=== PATIENT | male | born 1985 | race Caucasian/White ===

== ENCOUNTER 2019-08-19 20:50 | Emergency (ER) | payer OTHER ==
[~2019-08-19] VITALS: Ht 188 cm; Wt 79.4 kg
[2019-08-19 22:55] VITALS: BP 109/73
== END 2019-08-19 22:56 | disposition home or self-care (01) ==
LOC: M.ERS 20:50
DX: S90.31XA Contusion of right foot, initial encounter (principal); Z88.8 Allergy status to other drugs, medicaments and biological substances; W20.8XXA Other cause of strike by thrown, projected or falling object, initial encounter; Y93.89 Activity, other specified; Y92.89 Other specified places as the place of occurrence of the external cause; Y99.8 Other external cause status

== ENCOUNTER 2020-03-28 14:42 | Emergency (ER) | payer OTHER ==
[~2020-03-28] VITALS: Ht 188 cm; Wt 77.1 kg
[2020-03-28] MEDS ORDERED: MEDROLDOSEPACK PO (15:36)
[2020-03-28] MEDS ORDERED: APAP W/CODEINE1 TA2 PO (15:36)
[2020-03-28] MEDS ORDERED: NAPROSYN500 MG PO (15:36)
[2020-03-28 15:43] VITALS: BP 116/78
--- NOTE | 2020-03-29 10:10 | EKG ---
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: : 1985 Requested By: Dwight Cannon Order Number: [id number] MD: Marc Dowd Measurements Intervals [place] Rate: 66 P: 62 NE: 108 QRS: 75 QRSD: 97 T: 60 QT: 365 QTc: 383 Interpretive Statements Sinus rhythm Short NE interval ST elev, probable normal early repol pattern Baseline wander in lead(s) I,III,aVL,aVF,V6 No previous ECG available for comparison Electronically Signed On 03-29-2020 10:09:55 [employer] by Marc Dowd [email or web address] <ELECTRONICALLY SIGNED> By: Marc Dowd MD, [facility] 03/29/20 1009 1447 1447 Marc Dowd MD, [facility] /EPI
== END 2020-03-28 15:44 | disposition home or self-care (01) ==
LOC: M.ERS 14:42
DX: R07.9 Chest pain, unspecified (principal); Z88.8 Allergy status to other drugs, medicaments and biological substances

== ENCOUNTER 2020-05-01 00:16 | Emergency (ER) | payer OTHER ==
[~2020-05-01] VITALS: Ht 182.9 cm; Wt 77.1 kg
[~2020-05-01 00:16] MED LIST: APAP W/CODEINE1 TA2 PO; MEDROLDOSEPACK PO; NAPROSYN500 MG PO
[2020-05-01 00:47] LABS: ABSOLUTE EOSINOPHILS 0.2 thou/uL (0.0-0.7); ABSOLUTE LYMPHOCYTES 2.1 thou/uL (0.8-5.3); ABSOLUTE MONOCYTES 0.5 thou/uL (0.0-1.2); BASOPHILS 0.5 %; HEMATOCRIT 45.7 % (42.0-52.0); HEMOGLOBIN 15.6 gm/dL (14.0-18.0); LYMPHOCYTES 31.1 %; MCH 29.6 pg (26.0-34.0); MCHC 34.2 g/dL (28.0-37.0); MCV 86.4 fL (80.0-100.0); MONOCYTES 7.5 %; MPV 8.5 fl. (7.2-11.1); NUCLEATED RBCS 0 /100WBC; PLATELET COUNT* 71 thou/uL (150-400); POLYS 57.9 %; RBC 5.29 mil/uL (4.50-6.00); RDW-CV 12.6 % (10.5-14.5); WBC 6.9 thou/uL (4.0-11.0)
[2020-05-01 00:58] LABS: CALCIUM 8.5 mg/dL (8.5-10.1); CREATININE 0.9 mg/dL (0.6-1.3)
[2020-05-01 00:59] LABS: ALBUMIN 3.9 g/dL (3.4-5.0); TOTAL BILIRUBIN 0.6 mg/dL (<0.1-1.0); TOTAL PROTEIN 6.9 g/dL (6.4-8.2)
[2020-05-01 01:00] LABS: POTASSIUM 4.1 mmol/L (3.5-5.1)
[2020-05-01 01:51] LABS: AMP/METHAMP Negative (Negative); BARBITURATES Negative (Negative); BENZODIAZEPINES Negative (Negative); COCAINE Negative (Negative); METHADONE Negative (Negative); OPIATES Negative (Negative); PCP Negative (Negative); THC Negative (Negative)
[2020-05-01] MEDS ORDERED: REGLAN 10 MG TA10 MG PO (02:33)
[2020-05-01 02:49] VITALS: BP 118/67
== END 2020-05-01 02:50 | disposition home or self-care (01) ==
LOC: M.ERS 00:16
PROVIDERS: Emergency Medicine
DX: K56.7 Ileus, unspecified (principal); Z88.6 Allergy status to analgesic agent

== ENCOUNTER 2020-05-03 10:25 | Emergency (ER) | payer OTHER ==
[~2020-05-03] VITALS: Ht 182.9 cm; Wt 86.6 kg
[~2020-05-03 10:25] MED LIST changes: +REGLAN 10 MG TA10 MG PO
[2020-05-03 11:00] LABS: ABSOLUTE EOSINOPHILS 0.2 thou/uL (0.0-0.7); ABSOLUTE LYMPHOCYTES 1.8 thou/uL (0.8-5.3); ABSOLUTE MONOCYTES 0.6 thou/uL (0.0-1.2); ABSOLUTE NEUTROPHILS 5.2 thou/uL (1.6-8.1); BASOPHILS 0.4 %; EOSINOPHILS 2.2 %; HEMATOCRIT 45.4 % (42.0-52.0); HEMOGLOBIN 15.5 gm/dL (14.0-18.0); LYMPHOCYTES 22.8 %; MCH 29.1 pg (26.0-34.0); MCHC 34.2 g/dL (28.0-37.0); MCV 85.1 fL (80.0-100.0); MONOCYTES 7.8 %; MPV 7.9 fl. (7.2-11.1); NUCLEATED RBCS 0 /100WBC; POLYS 66.8 %; RBC 5.34 mil/uL (4.50-6.00); RDW-CV 12.7 % (10.5-14.5); WBC 7.8 thou/uL (4.0-11.0)
[2020-05-03 11:01] LABS: PLATELET COUNT* 234 thou/uL (150-400)
[2020-05-03 11:05] LABS: CALCIUM 8.6 mg/dL (8.5-10.1); CREATININE 1.1 mg/dL (0.6-1.3); POTASSIUM 3.5 mmol/L (3.5-5.1)
[2020-05-03 11:09] LABS: ALBUMIN 4.5 g/dL (3.4-5.0); TOTAL BILIRUBIN 0.5 mg/dL (<0.1-1.0); TOTAL PROTEIN 7.8 g/dL (6.4-8.2)
[2020-05-03 11:21] LABS: URINE BILIRUBIN NEGATIVE (Negative); URINE BLOOD NEGATIVE (Negative); URINE CLARITY CLEAR; URINE COLOR YELLOW; URINE GLUCOSE-RANDOM NEGATIVE (Negative); URINE KETONES NEGATIVE (Negative); URINE LEUKOCYTES-REFLEX NEGATIVE (Negative); URINE NITRITE-REFLEX NEGATIVE (Negative); URINE PROTEIN NEGATIVE (Negative); URINE SPECIFIC GRAVITY 1.015 (1.005-1.030); URINE UROBILINOGEN 0.2 E.U./dl (0.2-1.0)
[2020-05-03] MEDS ORDERED: HYDROCODON-ACE1 EAC7 PO (11:58)
[2020-05-03] MEDS ORDERED: BENTYL 10 MG CA10 MG PO (11:58)
[2020-05-03] MEDS ORDERED: ZOFRAN ODT4 MG DISSOLVE (11:58)
[2020-05-03 12:14] VITALS: BP 116/74
== END 2020-05-03 12:15 | disposition home or self-care (01) ==
LOC: M.ERS 10:25
PROVIDERS: Emergency Medicine Emergency Medical Services
DX: R10.31 Right lower quadrant pain (principal); Z88.6 Allergy status to analgesic agent

== ENCOUNTER 2020-05-10 20:40 | Emergency (ER) | payer OTHER ==
[~2020-05-10] VITALS: Ht 185.4 cm; Wt 77.1 kg
[~2020-05-10 20:40] MED LIST changes: +BENTYL 10 MG CA10 MG PO; +HYDROCODON-ACE1 EAC7 PO; +ZOFRAN ODT4 MG DISSOLVE
[2020-05-10 21:45] LABS: URINE BILIRUBIN NEGATIVE (Negative); URINE BLOOD NEGATIVE (Negative); URINE CLARITY CLEAR; URINE COLOR YELLOW; URINE GLUCOSE-RANDOM NEGATIVE (Negative); URINE KETONES NEGATIVE (Negative); URINE LEUKOCYTES-REFLEX NEGATIVE (Negative); URINE NITRITE-REFLEX NEGATIVE (Negative); URINE PROTEIN NEGATIVE (Negative); URINE SPECIFIC GRAVITY <= 1.005 (1.005-1.030); URINE UROBILINOGEN 0.2 E.U./dl (0.2-1.0)
[2020-05-10 21:53] LABS: AMP/METHAMP Negative (Negative); BARBITURATES Negative (Negative); BENZODIAZEPINES Negative (Negative); COCAINE Negative (Negative); METHADONE Negative (Negative); OPIATES Negative (Negative); PCP Negative (Negative); THC Negative (Negative)
[2020-05-10 21:54] LABS: HEMATOCRIT 39.9 % (42.0-52.0); HEMOGLOBIN 13.6 gm/dL (14.0-18.0); MCV 85.5 fL (80.0-100.0); RBC 4.67 mil/uL (4.50-6.00); RDW-CV 12.7 % (10.5-14.5); WBC 7.5 thou/uL (4.0-11.0)
[2020-05-10 22:03] LABS: CALCIUM 8.4 mg/dL (8.5-10.1); POTASSIUM 3.8 mmol/L (3.5-5.1)
[2020-05-10 22:07] LABS: ALBUMIN 3.9 g/dL (3.4-5.0); TOTAL BILIRUBIN 0.3 mg/dL (<0.1-1.0); TOTAL PROTEIN 6.7 g/dL (6.4-8.2)
[2020-05-10] MEDS ORDERED: REGLAN 10 MG TA10 MG PO (22:55)
[2020-05-10 22:59] VITALS: BP 128/70
== END 2020-05-10 22:59 | disposition home or self-care (01) ==
LOC: M.ERS 20:40
PROVIDERS: Personal Emergency Response Attendant
DX: R10.31 Right lower quadrant pain (principal)